=== PATIENT | female | born 1990 | race Caucasian/White ===

== ENCOUNTER → 2017-07-18 | Outpatient (CLI) | payer OTHER ==
[~2017-07-18] MED LIST: AMOXICILLIN500 MG PO; AMOXIL500 MG PO; AUGMENTIN 875 M1 TAB PO; BENTYL20 MG PO; CATAFLAM50 MG PO; ENTEX PSE 400 M1 CER PO; NKHM; PHENERGAN W/DM120 ML PO; VICODIN 5/500 505 MG PO; ZITHROMAX Z PA250 MG PO
== END | disposition home or self-care (01) ==
LOC: RAD 14:35
DX: R06.02 Shortness of breath (principal); R06.2 Wheezing; R05 Cough; R09.81 Nasal congestion

== ENCOUNTER → 2020-04-11 | Outpatient (CLI) | payer OTHER | END | disposition home or self-care (01) | LOC: RAD 14:08 | DX: R91.8 Other nonspecific abnormal finding of lung field (principal) ==